=== PATIENT | female | born 1985 | race Caucasian/White ===

== ENCOUNTER 2017-02-20 08:29 | Emergency (ER) | payer OTHER ==
[~2017-02-20] VITALS: Ht 162.6 cm; Wt 84.9 kg
[2017-02-20] MEDS ORDERED: ENOX40SY4 SQ (08:47)
[2017-02-20] MEDS ORDERED: PREN1TAB27 PO (08:47)
[2017-02-20 10:53] VITALS: BP 105/63
== END 2017-02-20 10:56 | disposition home or self-care (01) ==
LOC: ED 10:40
DX: M79.661 Pain in right lower leg (principal)
CPT/HCPCS: 99284

== ENCOUNTER → 2017-03-17 | Outpatient (CLI) | payer OTHER ==
[~2017-03-17] MED LIST: ENOX40SY4 SQ; PREN1TAB27 PO
== END | disposition home or self-care (01) ==
LOC: CFH 15:47
PROVIDERS: ATTEND Registered Nurse
DX: R22.41 Localized swelling, mass and lump, right lower limb (principal)

== ENCOUNTER 2017-04-25 11:06 | Inpatient (IN) | payer OTHER ==
[~2017-04-25] VITALS: Ht 162.6 cm; Wt 90.0 kg
[2017-04-25 12:11] LABS: ASPARTATE AMINO TRANSFERASE 20 U/L (15-37); BLOOD UREA NITROGEN 8 mg/dL (7-18)
[2017-04-25] MEDS ORDERED: ACETAMINOPHEN 325 MG TABLET ONE (15:48)
[2017-04-25] MEDS: ACETAMINOPHEN 325 MG TABLET PO PRN (15:49)
[2017-04-25] MEDS: DOCUSATE 50 MG/5 ML, 10ML UDC PO SCH (21:00)
[2017-04-26] MEDS: PRENATAL VIT/IRON/FA 1 EACH TABLET PO SCH (09:00)
[2017-04-26] MEDS: DOCUSATE 50 MG/5 ML, 10ML UDC PO SCH ×2 (09:00→21:00)
[2017-04-26] MEDS ORDERED: ACETAMINOPHEN 325 MG TABLET ONE ×2 (10:15→21:16)
[2017-04-26] MEDS ORDERED: DOCUSATE 100 MG CAPSULE ONE (10:15)
[2017-04-26] MEDS: ACETAMINOPHEN 325 MG TABLET PO PRN ×2 (10:18→21:18)
[2017-04-26] MEDS ORDERED: MAGNESIUM SULF. PMX 20GM/500ML 500 ML IV SCH (10:55)
[2017-04-26 12:28] LABS: ASPARTATE AMINO TRANSFERASE 21 U/L (15-37); BLOOD UREA NITROGEN 11 mg/dL (7-18)
[2017-04-26] MEDS ORDERED: LACTATED RINGERS 1,000 ML IV PRN (12:39)
[2017-04-26] MEDS ORDERED: NEWBORN KIT ONE (12:47)
[2017-04-26] MEDS ORDERED: OXYTOCIN 30U/ 0.9% NaCL 500ML 500 ML ONE (12:47)
[2017-04-26] MEDS ORDERED: LIDOCAINE 1%, 20ML ONE (12:47)
[2017-04-26] MEDS ORDERED: MISOPROSTOL 200 MCG TABLET ONE (12:48)
[2017-04-26] MEDS ORDERED: CALCIUM GLUCONATE 4.6 MEQ/10 ML IV PRN (13:00)
[2017-04-26] MEDS ORDERED: MAGNESIUM SULFATE PMX 4GM/100M 100 ML IVPB ONE (13:00)
[2017-04-26] MEDS ORDERED: MISOPROSTOL 25 MCG TABLET ONE ×4 (14:01→20:34)
[2017-04-26] MEDS ORDERED: MAGNESIUM SULF. PMX 20GM/500ML 500 ML IV ONE ×2 (14:02→21:53)
[2017-04-26] MEDS: MAGNESIUM SULF. PMX 20GM/500ML 500 ML IV SCH ×3 (14:25→21:58)
[2017-04-26] MEDS ORDERED: FENTANYL/BUPIV./NS/PF 250 ML EPIDCONT SCH (15:01)
[2017-04-26] MEDS ORDERED: NALOXONE 0.4 MG/ML, 1ML IVPush PRN (15:30)
[2017-04-26] MEDS ORDERED: EPHEDRINE 50 MG/ML, 1ML IVPush PRN (15:30)
[2017-04-26] MEDS ORDERED: LACTATED RINGERS 1,000 ML IVBOLUS PRN (15:30)
[2017-04-26] MEDS ORDERED: PROMETHAZINE 25 MG/ML, 1ML IM PRN (16:00)
[2017-04-26] MEDS ORDERED: ONDANSETRON 2MG/ML, 2ML ONE (16:03)
[2017-04-26] MEDS: ONDANSETRON 2MG/ML, 2ML IVPush PRN (16:05)
[2017-04-26] MEDS ORDERED: MISOPROSTOL 25 MCG TABLET PO PRN (17:00)
[2017-04-26] MEDS ORDERED: MISOPROSTOL 100 MCG TABLET PO ONE (20:00)
[2017-04-26] MEDS: LACTATED RINGERS 1,000 ML IV SCH (21:59)
[2017-04-26] MEDS ORDERED: DIPHENHYDRAMINE 25 MG CAPSULE ONE (22:10)
[2017-04-26] MEDS ORDERED: OXYcodone 5 MG/5 ML ORAL.SOL UDC ONE (22:10)
[2017-04-26] MEDS ORDERED: DIPHENHYDRAMINE 50 MG CAPSULE PO PRN (22:30)
[2017-04-26] MEDS ORDERED: OXYcodone 5 MG/5 ML ORAL.SOL UDC PO ONE (22:30)
[2017-04-27] MEDS ORDERED: ONDANSETRON 2MG/ML, 2ML ONE (00:47)
[2017-04-27] MEDS: ONDANSETRON 2MG/ML, 2ML IVPush PRN (00:51)
[2017-04-27] MEDS: D5%-LACTATED RINGERS 1,000 ML IV SCH ×3 (02:30→18:30)
[2017-04-27] MEDS ORDERED: D5%-LACTATED RINGERS 1,000 ML IV SCH (02:30)
[2017-04-27] MEDS ORDERED: FENTANYL PF 100 MCG/2ML ONE ×2 (03:31→09:16)
[2017-04-27] MEDS: FENTANYL PF 100 MCG/2ML IVPush PRN ×2 (03:45→07:52)
[2017-04-27] MEDS: DOCUSATE 50 MG/5 ML, 10ML UDC PO SCH ×2 (09:00→21:00)
[2017-04-27] MEDS: PRENATAL VIT/IRON/FA 1 EACH TABLET PO SCH (09:00)
[2017-04-27] MEDS ORDERED: MIDAZOLAM 1 MG/ML, 2ML ONE (09:16)
[2017-04-27] MEDS ORDERED: METOCLOPRAMIDE 5 MG/ML, 2ML ONE ×2 (09:23→09:35)
[2017-04-27] MEDS ORDERED: SODIUM CITRATE/CITRIC ACID 30 ML UDC ONE ×2 (09:23→09:35)
[2017-04-27] MEDS: LACTATED RINGERS 1,000 ML IV SCH ×10 (09:27→23:01)
[2017-04-27] MEDS ORDERED: FENTANYL PF 100 MCG/2ML IV PRN (09:30)
[2017-04-27] MEDS ORDERED: MEPERIDINE/PF 25MG/0.5ML IVPush PRN (09:30)
[2017-04-27] MEDS ORDERED: hydrALAzine 20 MG/ML, 1ML IV PRN (09:30)
[2017-04-27] MEDS ORDERED: LABETALOL 5MG/ML, 20ML IV PRN (09:30)
[2017-04-27] MEDS ORDERED: OXYcodone 5 MG/5 ML ORAL.SOL UDC PO PRN (09:30)
[2017-04-27] MEDS ORDERED: ONDANSETRON 2MG/ML, 2ML IVPush PRN (09:30)
[2017-04-27] MEDS ORDERED: morphine SULFATE 10 MG/ML, 1ML IV PRN (09:30)
[2017-04-27] MEDS ORDERED: CEFAZOLIN 1,000 MG ONE (09:35)
[2017-04-27] MEDS ORDERED: BUPIVACAINE 0.25% ONE (09:35)
[2017-04-27] MEDS ORDERED: LIDOCAINE 1%, 20ML ONE (09:35)
[2017-04-27] MEDS ORDERED: METOCLOPRAMIDE 5 MG/ML, 2ML IV PRN (11:00)
[2017-04-27] MEDS ORDERED: ACETAMINOPHEN 325 MG TABLET PO PRN (11:00)
[2017-04-27] MEDS ORDERED: CALCIUM CARBONATE 500 MG TAB.CHEW PO PRN (11:00)
[2017-04-27] MEDS ORDERED: ONDANSETRON 2MG/ML, 2ML IV PRN (11:00)
[2017-04-27] MEDS ORDERED: SIMETHICONE 80 MG CHEW TAB PO PRN (11:00)
[2017-04-27] MEDS: OXYTOCIN 30U/ 0.9% NaCL 500ML 500 ML IV SCH ×3 (11:28→20:45)
[2017-04-27] MEDS ORDERED: OXYcodone/APAP 5/325MG TABLET ONE (11:41)
[2017-04-27] MEDS: OXYcodone/APAP 5/325MG TABLET PO PRN ×4 (12:09→23:33)
[2017-04-27 13:40] VITALS: BP 145/93
[2017-04-27 15:40] VITALS: BP 149/98
[2017-04-27] MEDS ORDERED: MISOPROSTOL 200 MCG TABLET PR PRN (17:00)
[2017-04-27] MEDS: WARFARIN 5 MG TABLET PO-COUM SCH (18:01)
[2017-04-27 20:50] VITALS: BP 137/90
[2017-04-28] VITALS: BP 139/90
[2017-04-28] MEDS: LACTATED RINGERS 1,000 ML IV SCH ×8 (00:52→16:52)
[2017-04-28] MEDS: D5%-LACTATED RINGERS 1,000 ML IV SCH (02:30)
[2017-04-28] MEDS: OXYTOCIN 30U/ 0.9% NaCL 500ML 500 ML IV SCH ×3 (02:52→12:52)
[2017-04-28] MEDS: OXYcodone/APAP 5/325MG TABLET PO PRN ×3 (03:33→20:26)
[2017-04-28] MEDS: MAGNESIUM SULF. PMX 20GM/500ML 500 ML IV SCH (04:39)
[2017-04-28 06:00] VITALS: BP 140/89
[2017-04-28 07:27] VITALS: BP 148/96
[2017-04-28] MEDS: DOCUSATE 100 MG CAPSULE PO PRN ×2 (08:08→20:26)
[2017-04-28] MEDS: PRENATAL VIT/IRON/FA 1 EACH TABLET PO SCH ×2 (08:08→09:00)
[2017-04-28] MEDS: OXYcodone IR 5MG TABLET PO PRN ×2 (08:08→12:17)
[2017-04-28 16:00] VITALS: BP 147/94
[2017-04-28] MEDS: WARFARIN 5 MG TABLET PO-COUM SCH (19:20)
[2017-04-28 20:30] VITALS: BP 144/93
[2017-04-29] MEDS: OXYcodone IR 5MG TABLET PO PRN ×4 (00:49→20:24)
[2017-04-29 00:50] VITALS: BP 138/95
[2017-04-29] MEDS: OXYcodone/APAP 5/325MG TABLET PO PRN ×3 (05:29→16:02)
[2017-04-29 07:30] VITALS: BP 132/97
[2017-04-29] MEDS: DOCUSATE 100 MG CAPSULE PO PRN ×2 (08:02→20:23)
[2017-04-29] MEDS: PRENATAL VIT/IRON/FA 1 EACH TABLET PO SCH ×2 (09:00)
[2017-04-29] MEDS ORDERED: WARFARIN 10 MG TABLET PO-COUM SCH (18:00)
[2017-04-29 19:23] VITALS: BP 150/105
[2017-04-29 20:00] VITALS: BP 143/99
[2017-04-29 21:20] VITALS: BP 143/85
[2017-04-30] MEDS: OXYcodone/APAP 5/325MG TABLET PO PRN ×3 (00:22→13:34)
[2017-04-30 04:00] VITALS: BP 142/98
[2017-04-30] MEDS: OXYcodone IR 5MG TABLET PO PRN (04:37)
[2017-04-30 08:00] VITALS: BP 140/96
[2017-04-30] MEDS: DOCUSATE 100 MG CAPSULE PO PRN (09:00)
[2017-04-30] MEDS: PRENATAL VIT/IRON/FA 1 EACH TABLET PO SCH (09:00)
[2017-04-30] MEDS ORDERED: OXYC-302 PO (10:52)
[2017-04-30] MEDS ORDERED: DOCU-30 PO (10:52)
[2017-04-30] MEDS ORDERED: WARF10TA PO (10:53)
== END 2017-04-30 14:18 | disposition home or self-care (01) | DRG 765 ==
LOC: LDOP 11:06 → LDIP 13:03 → 2NW 04-27 13:08
PROVIDERS: ADMIT Obstetrics & Gynecology; ATTEND Obstetrics & Gynecology
PROC: 10D00Z1 Extraction of Products of Conception, Low, Open Approach (ICD-10-PCS; principal; 2017-04-27)
PROC: 3E0P7GC Introduction of Other Therapeutic Substance into Female Reproductive, Via Natural or Artificial Opening (ICD-10-PCS; 2017-04-27)
DX: O14.13 Severe pre-eclampsia, third trimester (principal); O60.14X0 Preterm labor third trimester with preterm delivery third trimester, not applicable or unspecified; O76 Abnormality in fetal heart rate and rhythm complicating labor and delivery; O69.81X0 Labor and delivery complicated by cord around neck, without compression, not applicable or unspecified; Z3A.36 36 weeks gestation of pregnancy; Z37.0 Single live birth; Z86.718 Personal history of other venous thrombosis and embolism; Z79.01 Long term (current) use of anticoagulants
CPT/HCPCS: 36415; 80053; 81001; 81050; 82248; 82570; 82803; 83735; 84156; 84550; 85025; 85610; J0690; J2250; J2405; J3010; J3490; J2590; J2765; J3475; J7120; J7121